=== PATIENT | female | born 1950 | race African-American/Black ===

== ENCOUNTER → 2016-10-26 | Outpatient (CLI) | payer MEDICARE, OTHER ==
--- NOTE | ~2016-10-26 | CT55 ---
[facility] A Service of [facility] RADIOLOGY TEXT RESULTS PATIENT: FAUSTINO CERDA [facility] #: [id number] AGE: [address]: Santino De León MD SEX: F ORDER DR: [id number] [facility] [address] [place], [place] [address] [id number] O MR#: [id number] [facility] #: [id number] NAME: FAUSTINO CERDA : 1950 SEX: F STUDY DATE/TIME: 10/26/2016 12:06 UNIT: [facility] ROOM: STUDY DESCRIPTION: CT Chest W Con Attending Physician: Santino De León M.D. Referring Physician: Santino De León M.D. Ordering Physician: Santino De León M.D. Primary Care Physician: Harper Weber M.D. MEDICAL IMAGING REPORT This report is preliminary unless electronic signature is present EXAMINATION CT chest with contrast. DATE 10/26/2073 HISTORY 66-year-old female with elevated white blood cell count, unspecified and fatigue. Symptoms began 2 weeks ago. Additional history of pulmonary nodules which have been stable dating back to 2011. COMPARISON Noncontrast CT chest, 06/03/2015. PA and lateral chest radiograph 09/06/2016. PROCEDURE 5 mm axial images through the chest after intravenous contrast administration. Sagittal and coronal reformatted images were obtained. This CT exam was performed with one or more of the following radiation dose reduction techniques: automatic exposure control, adjustment of mA and/or kV according to patient size, and iterative reconstruction. FINDINGS No acute airspace disease. No pericardial effusion. No pleural effusion. No pathologic adenopathy. 4 mm left upper lobe (series 6, image 19), 2 mm, lingula (image 33), 2 mm lingular (image 29), 3 mm right middle lobe (image 31) 3 mm right upper lobe (image 24). Pulmonary nodules are stable since 12/03/2011, consistent with benign findings, no further followup is necessary with respect to these nodules. No new pulmonary nodules are seen. Minimal linear scarring of the posterior left lower lobe is also unchanged from 2012. [facility] A Service of [facility] RADIOLOGY TEXT RESULTS PATIENT: FAUSTINO CERDA LOCATION: [facility] : 50 UNIT #: [id number] AGE: [address]: Santino De León MD SEX: F ORDER DR: Included portions of the upper abdominal organs are within normal limits. IMPRESSION 1. No acute chest findings. 2. Stable 4 mm or less nodules within both lungs as described in the report, in comparison to 12/03/2011. This confirms nearly 5 years of stability and benignity and no further surveillance is warranted with respect to these nodules. No new pulmonary nodules. Dictated by... Christine Marks M.D. THIS IS AN ELECTRONICALLY VERIFIED REPORT Christine Marks M.D. at 11/01/2016 8:37 AM CORINA/enrike TD: 10/26/2016 20:46 JOB #: [id number] MEDICAL IMAGING REPORT Page 1 of 1 COPY
[2016-10-26 12:06] LABS: POC - CREATININE 0.83 mg/dL (0.44-1.03); POC - GFR >60.0 mL/min (>60)
== END | disposition home or self-care (01) ==
LOC: CCAT 11:39
PROVIDERS: Internal Medicine Hematology
DX: D72.829 Elevated white blood cell count, unspecified (principal); R91.8 Other nonspecific abnormal finding of lung field
CPT/HCPCS: 71260; 82565; Q9967